=== PATIENT | female | born 1980 | race American Indian/Alaskan Native ===

== ENCOUNTER 2016-08-05 11:16 | Emergency (ER) | payer MEDICAID, OTHER ==
--- NOTE | 2016-08-05 11:31 | OBHP ---
Datetime: 08/05/2016 11:28 IP Adm Impression: , intrauterine IP Chief Complaint Other: pelvic pressure Admit Comment, IP Provider: at 32weeks came from [facility] last night. c/o pelvic pressure and cram ping. no vb, lof,+fm, no dysuria. obhx 1 x c/s, 1 x pmh denies med pnv all nkda psh c/s soch denies ve closed a/p at 32weeks r/o uti, r/o pt lab ua cont maru and efm cont lose observation Pelvic Type - PN: Adequate Extremities - PN: Normal Abdomen - PN: Normal Back - PN: Normal Breast - PN: Normal Lungs - PN: Normal Heart - PN: Normal Thyroid - PN: Normal Neurologic - PN: Normal HEENT - PN: Normal General - PN: Normal FHR - Baseline A Provider: 130 Contraction Comments Provider: none Vital Signs Provider: Reviewed; Within Normal Limits NICHD Variability Prov Fetus A: Moderate 6-25bpm NICHD Accel Fetus A IP Provider: 15X15 FHR Category Provider Fetus A: Category I Dilatation, Provider: 0 Effacement, Provider: 0 Station, Provider: -3 Genitourinary Exam: Normal DTRs - PN: Normal
[2016-08-05 12:04] LABS: RBC URINE 1 /hpf (0-3); URINE BACTERIA RARE (<OCC); URINE BILIRUBIN NEGATIVE (NEGATIVE); URINE BLOOD NEGATIVE (NEGATIVE); URINE COLOR Yellow (YELLOW); URINE GLUCOSE (UA) NORMAL (Normal); URINE KETONE NEGATIVE (NEGATIVE); URINE LEUKOCYTE ESTERASE 1+ Leu/uL (Negative); URINE PROTEIN NEGATIVE (NEGATIVE); URINE UROBILINOGEN NORMAL mg/dL (0.2-1.0); WBC URINE 6 /hpf (0-5)
--- NOTE | 2016-08-05 12:14 | OBHP ---
Datetime: 08/05/2016 11:28 Admit Comment, IP Provider: at 32weeks came from [facility] last night. c/o pelvic pressure and cram ping. no vb, lof,+fm, no dysuria. obhx 1 x c/s, 1 x pmh denies med pnv all nkda psh c/s soch denies ve closed a/p at 32weeks r/o uti, r/o pt lab ua cont maru and efm cont lose observation ua 1+le toco no ctxs plan dc home macrobid po hyration ptl given f/u in [facility] [place] [facility] on friday
--- NOTE | 2016-08-05 12:15 | OBDCSUM ---
Datetime: 08/05/2016 12:13 Discharged to, Provider: Home Follow up at, Provider: friday Follow up in weeks, Provider: [facility] Discharge Comment, Provider: dc home macrobid po hyration ptl given f/u in [facility] on friday Discharge Diagnosis Prov Other: 32week nst uti
== END 2016-08-05 12:20 | disposition home or self-care (01) ==
LOC: C.EROB 11:16
DX: O26.893 Other specified pregnancy related conditions, third trimester (principal); R10.2 Pelvic and perineal pain; Z3A.32 32 weeks gestation of pregnancy

== ENCOUNTER 2016-09-14 09:53 | Emergency (ER) | payer MEDICAID, OTHER ==
--- NOTE | 2016-09-14 11:50 | US ---
PROCEDURE: OB Pelvic Ultrasound HISTORY: OB Sonogram for dating COMPARISON: None available. FINDINGS: LMP: 12/21/2015 UTERUS: Gestational sac: Single intrauterine gestation. Heart rate: 150 bpm. age (Ultrasound estimated): 36 weeks 6 days +/- 2 weeks 4 days. The placenta is seen at the uterine fundus. Date of delivery (Ultrasound estimated) : 10/06/2016 Amniotic fluid index is 10.2 centimeter. CERVIX: Long and closed. No cervical abnormality seen. The cervix measures 2.7 centimeter. RIGHT OVARY: Was not visualized LEFT OVARY: Was not visualized FREE FLUID: None. OTHER FINDINGS: None. IMPRESSION: Single intrauterine live with ultrasound estimated gestational age of 36 weeks 6 days +/- 2 weeks 4 days. Estimated date of delivery by ultrasound is 10/06/2016.
== END 2016-09-14 12:30 | disposition home or self-care (01) ==
LOC: C.EROB 09:53
DX: O26.93 Pregnancy related conditions, unspecified, third trimester (principal); Z3A.38 38 weeks gestation of pregnancy; R10.2 Pelvic and perineal pain

== ENCOUNTER 2016-10-03 11:30 | Inpatient (IN) | payer MEDICAID, OTHER ==
[2016-10-03] MEDS: Lactated Ringer's 1,000 ML IV SCH (12:30)
--- NOTE | 2016-10-03 12:31 | OBHP ---
Datetime: 09/14/2016 12:00 IP Adm Impression: Term, intrauterine ; No Active Labor IP Admit Plan: Observation/Evaluation; Discharge home Admit Comment, IP Provider: 35yo 1 previous C/section and 1 , presents here today with pelv ic discomfort. She denies any VB or LOF. She recently emigrated from [place] and has no PNC in [place] . FHR- Category 1, [place]- none, Cx- 0/0/-3. Assessment: IUP at Term No Active Labor Plan: Official OB sonogram D/c home. Pelvic Type - PN: Adequate Extremities - PN: Normal Abdomen - PN: Normal Back - PN: Normal Breast - PN: Normal Lungs - PN: Normal Heart - PN: Normal Thyroid - PN: Normal Neurologic - PN: Normal HEENT - PN: Normal General - PN: Normal FHR - Baseline A Provider: 130 Membranes, Provider: Intact Contraction Comments Provider: none Comments, ACOG Physical Exam: Abd: Soft,NT, BS- present EGA AdmitDate IP: 38.1 Vital Signs Provider: Reviewed IP Chief Complaint: Maternal discomfort NICHD Variability Prov Fetus A: Moderate 6-25bpm NICHD Accel Fetus A IP Provider: 15X15 FHR Category Provider Fetus A: Category I NICHD Decel Fetus A IP Provider: None Dilatation, Provider: 0 Effacement, Provider: 0 Station, Provider: -3 Genitourinary Exam: Normal DTRs - PN: Normal
--- NOTE | 2016-10-03 12:46 | OBADHP ---
Datetime: 10/03/2016 12:31 IP Chief Complaint Other: No care in the [place] IP Adm Impression Other: Previous Section Admit Comment, IP Provider: 35yo with IUP at 39+ wks with h/o previous Section X1 and a VBA C X1 reports here today c/o uterine contractions. She returned from [place] about 2 months ago and hav e not had care in [place]. She denies any VB or LOF. [place]- irregular, FHR- Category 1, Cx- FT/50/-3, VTX Assessment: IUP at Term with Previous C/S Early Labor Undocumented Section Scar. Plan: Admit for a repeat Section. Pelvic Type - PN: Adequate Extremities - PN: Normal Abdomen - PN: Normal Back - PN: Normal Breast - PN: Normal Lungs - PN: Normal Heart - PN: Normal Thyroid - PN: Normal Neurologic - PN: Normal HEENT - PN: Normal General - PN: Normal Presentation-Admit: Vertex FHR - Baseline A Provider: 150 Membranes, Provider: Intact Contraction Comments Provider: Q 3-5 Gestation - Est Wks by US: 39.0 Vital Signs Provider: Reviewed IP Chief Complaint: Uterine contractions; Maternal discomfort NICHD Variability Prov Fetus A: Moderate 6-25bpm NICHD Accel Fetus A IP Provider: 10X10 FHR Category Provider Fetus A: Category I NICHD Decel Fetus A IP Provider: None Dilatation, Provider: FT Effacement, Provider: 50 Station, Provider: -3 Genitourinary Exam: Normal DTRs - PN: Normal EGA AdmitDate IP: 40.6 IP Adm Impression: Term, intrauterine ; Active labor IP Admit Plan: Admit to unit; Initiate Section protocol Datetime: 09/14/2016 12:00 Comments, ACOG Physical Exam: Abd: Soft,NT, BS- present
[2016-10-03 12:49] VITALS: BMI 31.0
[2016-10-03] MEDS ORDERED: Sodium Citrate/Citric Acid 15 ml Sol PO ONE (12:49)
[2016-10-03 13:05] LABS: BASO % 0.7 % (0.0-2.0); EOS # 0.1 K/uL (0.0-0.7); EOS % 0.7 % (0.0-4.0); HEMATOCRIT 39.4 % (34.0-47.0); LYMPH # 1.7 K/uL (1.0-4.3); LYMPH % 24.6 % (20.0-40.0); MEAN CELL VOLUME 82.8 fL (81.0-99.0); MEAN CORPUSCULAR HEMOGLOBIN 27.2 pg (27.0-31.0); MEAN CORPUSCULAR HGB CONC 32.8 g/dL (33.0-37.0); MEAN PLATELET VOLUME 11.4 fL (7.2-11.7); MONO # 0.8 K/uL (0.0-0.8); RED CELL DISTRIBUTION WIDTH 13.3 % (11.5-14.5)
[2016-10-03 13:10] LABS: RBC URINE 2 /hpf (0-3); URINE BACTERIA RARE (<OCC); URINE BILIRUBIN NEGATIVE (NEGATIVE); URINE BLOOD NEGATIVE (NEGATIVE); URINE COLOR Yellow (YELLOW); URINE GLUCOSE (UA) NORMAL (Normal); URINE KETONE NEGATIVE (NEGATIVE); URINE LEUKOCYTE ESTERASE NEG Leu/uL (Negative); URINE PROTEIN NEGATIVE (NEGATIVE); URINE UROBILINOGEN NORMAL mg/dL (0.2-1.0); WBC URINE 4 /hpf (0-5)
[2016-10-03 13:19] LABS: CHLORIDE 102 mmol/L (98-107)
[2016-10-03 13:20] LABS: POTASSIUM 3.7 mmol/L (3.6-5.2); SODIUM 134 mmol/L (132-148)
[2016-10-03 13:22] LABS: ALB/GLOB RATIO 0.9 (1.0-2.1); ALKALINE PHOSPHATASE 246 U/L (38-126); AST/SGOT 30 U/L (14-36); BILIRUBIN,TOTAL 0.5 mg/dL (0.2-1.3); BLOOD UREA NITROGEN 9 mg/dL (7-17); CARBON DIOXIDE 22 mmol/L (22-30); GFR AFRICAN-AMERICAN > 60; TOTAL PROTEIN 6.4 g/dL (6.3-8.3)
[2016-10-03 13:23] LABS: ALT/SGPT 28 U/L (9-52); CALCIUM 9.3 mg/dl (8.6-10.4); GLUCOSE,RANDOM 103 mg/dL (65-105)
[2016-10-03] MEDS ORDERED: Oxytocin 20 units in LR 2,000 ML IV ONE (13:49)
[2016-10-03] MEDS ORDERED: Sodium Citrate/Citric Acid 15 ml Sol ONE (13:49)
[2016-10-03] MEDS ORDERED: cefOXitin IV 2 gm in Dextrose 2 GM/50 ML BAG IVPB ONE (14:00)
[2016-10-03] MEDS ORDERED: Morphine 1 mg/ml preservative-free Inj(Duramorph) ONE (14:58)
--- NOTE | 2016-10-03 17:12 | OBDS ---
DELIVERY PERSONNEL Delivery Doctor: Krunal Dias MD Scrub Nurse: Milli Arenas OBT Roving Marker: Hoa Castro RN Anesthesiologist: mariely MATERNAL INFORMATION Delivery Anesthesia: Spinal Maternal Complications: None RN Comments: live born baby boy, 9/9 Provider Comments: Uncomplicated Repeat delivery of a viable male infant with scores of 9 and 9. Baby delivered in cephalic presentation. LABOR SUMMARY EDC: 09/27/2016 00:00 No. Babies in Womb: 1 Attempted: No Labor Anesthesia: None LABOR INFORMATION Oxytocin: N/A Steroids Given: None Reason Steroids Not Administered: Not Applicable STAGES OF LABOR Stage 3 hrs: 0 Stage 3 min: 2 VAGINAL DELIVERY Episiotomy: None Laceration Extension: N/A Laceration Type: None CSECTION DELIVERY Primary Indication: Repeat Elective Secondary Indication: N/A CSection Urgency: Elective CSection Incidence: Repeat Labor: N/A Elective: Elective CSection Incision: Lower Uterine Transverse Uterine Closure: Double-layer closure BABY A INFORMATION Delivery Date/Time: 10/03/2016 16:01 Method of Delivery: Born in Route : No : N/A Forceps: N/A Vacuum Extraction: N/A Shoulder Dystocia : No SHOULDER DYSTOCIA BABY A Infant Delivery Date/Time: 10/03/2016 16:01 PRESENTATION/POSITION BABY A Presentation: Cephalic Cephalic Presentation: Vertex Vertex Position: Right Occipital Anterior Breech Presentation: N/A PLACENTA INFORMATION BABY A Placenta Delivery Time : 10/03/2016 16:03 Placenta Method of Delivery: Manual Removal Placenta Status: Delivered SCORES BABY A Heart Rate 1 min: >100 bpm Resp Effort 1 min: Good Cry Reflex Irritability 1 min: Cough or Sneeze or Pulls Away Muscle Tone 1 min: Active Motion Color 1 min: Body [place], Extremities Blue SCORE 1 MIN: 9 Heart Rate 5 min: >100 bpm Resp Effort 5 min: Good Cry Reflex Irritability 5 min: Cough or Sneeze or Pulls Away Muscle Tone 5 min: Active Motion Color 5 min: Body [place], Extremities Blue SCORE 5 MIN: 9 Resuscitation Effort 10 min: N/A INFORMATION BABY A Gestational Age at Delivery: 40.0 Gestational Status: Term Outcome : Liveborn Condition : Stable Sex: Male IDENTIFICATION/MEDS BABY A ID Band Number: [id number] ID Band Location: Right Arm; Left Leg; Left Arm Sensor Applied: Yes Sensor Number: [id number] Sensor Location : Cord Clamp Vitamin K Given : Not Given Erythromycin Given: Not Given WEIGHT/LENGTH BABY A Infant Birthweight (gms): 3300 Weight (lb): 7 Weight (oz): 4 Infant Length Inches: 20.00 Length cms: 50.8 CORD INFORMATION BABY A No. Cord Vessels: 3 Nuchal Cord : N/A Cord Blood Taken: Yes Infant Suction: Mouth; Nose ASSESSMENT BABY A Complications: None Physical Findings at Delivery: Within Normal Limits Infant Respirations: Appears Normal Poke In/ALS Called : No Infant Care By: violetta meléndez rn Transferred To: [facility]
--- NOTE | 2016-10-03 17:29 | PCM.SURG1 ---
Surgeon's Initial Post Op Note - Surgeon's Notes Surgeon: Dr Dias Senior Treasury Analyst: Dr Malloy Type of Anesthesia: Spinal Anesthesia Administered By: Dr Emmanuel Pre-Operative Diagnosis: IUP at 39wks previous Section in Early Labor Operative Findings: Live male baby with BW of 7ibs 4 oz and scores of 9 and 9, Fundal placenta, Clear amniotic fluid cephalic prentation. Normal looking uterus but extensive fibrous adhesions of bladder peritoneum to the anterior surfacce of the uterus which had to be dissected before lower transverse incision. The fallopian tunes and ovaries appeared normal on both sides. IVF- 1400ml. EBL- 600mls. Urine output- 400mls of clear urine. Post-Operative Diagnosis: Same as preop diagnosis. Bladder adhesions to the anterior surface of the uterus Operation Performed: Release of Adhesions. Repeat low transverse Section. Specimen/Specimens Removed: Umbilical cord blood obtained. Estimated Blood Loss: EBL {In ML}: 600 Blood Products Given: N/A Post-Op Condition: Good Date of Surgery/Procedure: 10/03/16 Time of Surgery/Procedure: 17:31
--- NOTE | 2016-10-03 19:16 | OP ---
PROCEDURE DATE: 10/03/2016 PREOPERATIVE DIAGNOSES: Intrauterine at 39+ weeks with history of section in early labor. POSTOPERATIVE DIAGNOSES: Intrauterine at 39+ weeks with history of section in early labor. PROCEDURE DONE: Repeat low transverse section performed on 10/03/2016. SURGEON: Dr. Dias. COUNTY PROGRAM TECHNICIAN: Dr. Malloy. Assistance to this procedure was needed for exposure of tissues and help in the delivery of the baby. Supervisor Case Loading remained with the surgery throughout its entire length. TYPE OF ANESTHESIA: Spinal anesthesia administered by Dr. Wagner Emmanuel. OPERATIVE FINDINGS: A live male baby with weight of 7 pounds 4 ounces, scores of 9 in the first and fifth minutes respectively, delivered in cephalic presentation in the right occipital anterior position. Amniotic fluid was clear. Placenta was fundal. The uterus was normal looking, but there were extensive fibrinous adhesions of the bladder peritoneum to the anterior surface of the uterus, which had to be dissected before the lower uterine transverse incision. The fallopian tubes as well as the ovaries on both sides appeared normal. INTRAVENOUS FLUID INTAKE: INTAKE: 1400 mL. ESTIMATED BLOOD LOSS: 600 mL. URINE OUTPUT: 400 mL of clear urine at the end of the procedure. COMPLICATIONS: There were no complications. DESCRIPTION OF PROCEDURE: After obtaining informed consent, the patient was sent to the OR with IV running and Blankenship catheter in place. The patient was sat on the OR table and after adequate spinal anesthesia, was put in a supine position with a left lateral tilt. The patient was prepped and draped in the usual sterile fashion. A subumbilical midline incision was performed after excision of the previous scar. The incision was carried through the subcutaneous tissues until the rectus fascia was identified. A longitudinal incision was made in the rectus fascia and the edges were held with Allis forceps. The underlying rectus muscles were then from the fascia and the peritoneum was carefully entered using Metzenbaum scissors. The incision was then extended in a cephalad and caudad fashion until access to the abdomen was acquired. Once the abdominal cavity was entered, the above findings were noted. The fibrinous adhesions on the anterior surface of the uterus were released using free 2-0 vicryl ties to seperate the adhesions. After separation of the adhesions, the vesicouterine fold of peritoneum was identified , incised in a transverse fashion and retracted inferiorly to expose the lower uterine segment. A low transverse incision was made using a scalpel. This was sent through the myometrial layers until the amniotic membranes were identified. The incision was extended to both sides in a blunt fashion. The baby, who was in cephalic presentation, was delivered after rupturing the amniotic membranes with the pickup forceps. The mouth and nostrils of the baby were bulb suctioned and the 3 vessel cord was clamped and cut. Baby was given to the nurse. The placenta was manually removed after obtaining samples of umbilical cord bloods The uterine cavity was cleaned of all debris using dry laparotomy pads. The uterine incision at this point was closed in 2 layers using Vicryl #0; the first layer in a running locked fashion and the second layer in a running fashion and imbricating the first layer. This was performed until hemostasis was achieved. Irrigation of the pelvis with warm saline was undertaken at this point and after removing the instruments and laparotomy pads from the abdomen, the uterus was returned into the abdominal cavity. There were some adhesions on the anterior surface of the uterus where the adhesions were . Surgicel was placed on that side to control the bleeding. Once hemostasis was noted, attention was turned to the anterior abdominal wall, which was closed in layers with 0 Vicryl for the fascia and the peritoneum. The subcutaneous tissue was brought together by means of #2-0 plain. The skin was closed using jaxson. All counts of instruments, laparotomy pads, and needles used were correct x 3 and the patient was sent to the recovery room awake and in stable condition. Pierre Dias MD cc: [id number] TT: 10/03/2016 19:15:15 jn MTDD
[2016-10-03] MEDS: Oxycodone/Acetaminophen 5/325 mg Tab PO PRN (22:47)
[2016-10-03] MEDS: cefOXitin IV 2 gm in Dextrose 2 GM/50 ML BAG IVPB SCH (22:49)
[2016-10-03] MEDS ORDERED: cefOXitin IV 2 gm in Saline 2 GM in Sodium Chloride 0.9% 50 ML IV SCH (23:30)
[2016-10-04] MEDS: Lactated Ringer's 1,000 ML IV SCH (01:53)
[2016-10-04] MEDS ORDERED: cefOXitin IV 2 gm in Dextrose 2 GM/50 ML BAG IVPB ONE (06:45)
[2016-10-04] MEDS: Oxycodone/Acetaminophen 5/325 mg Tab PO PRN ×4 (06:47→20:28)
[2016-10-04] MEDS: cefOXitin IV 2 gm in Dextrose 2 GM/50 ML BAG IVPB SCH ×2 (06:49→16:06)
--- NOTE | 2016-10-04 07:43 | OBPPN ---
Datetime: 10/04/2016 07:40 PP Pain Prov: Within normal limits PP Nausea Prov: Denies PP Flatus Prov: Yes PP BM Prov: No PP Heart Prov: Normal PP Lungs Prov: Normal PP Abdomen/Uterus Prov: Normal PP Lochia Prov: Normal PP Vulva/Perineum Prov: Normal PP CVA Tenderness Prov: Normal PP Extremities Prov: Normal PP C/S Incision Prov: Normal PP Progress Prov: Normal PP Impression Prov: Normal progression PP Plan Prov: Continue present management PP Progress Note Prov: S-patient reports that her pain is well controlled. she denies nausea, vomiti ng, headache, chest pain, shortness of breath,numbness or tingling in hands and feet O-VSS AFebrile Fundus firm and below umbilcius Incision clean, dry and intact extremities no calf tenderness A/P Patient s/p csection pod 1 doing well.Patient with no care -advance diet -po fluids -encourage IS use -continue routine post op care -follow up am cbc -social service consult Vital Signs Provider PP: Reviewed; Within Normal Limits
[2016-10-04 08:09] LABS: BASO % 0.5 % (0.0-2.0); EOS # 0.1 K/uL (0.0-0.7); EOS % 0.6 % (0.0-4.0); LYMPH # 1.2 K/uL (1.0-4.3); LYMPH % 12.3 % (20.0-40.0); MEAN CORPUSCULAR HEMOGLOBIN 27.5 pg (27.0-31.0); MEAN CORPUSCULAR HGB CONC 33.1 g/dL (33.0-37.0); MEAN PLATELET VOLUME 11.9 fL (7.2-11.7); MONO # 0.9 K/uL (0.0-0.8); MONO % 9.1 % (0.0-10.0); RED CELL DISTRIBUTION WIDTH 13.3 % (11.5-14.5); WHITE BLOOD COUNT 9.5 K/uL (4.8-10.8)
[2016-10-04] MEDS ORDERED: Bisacodyl 5mg EC Tab PO ONE ×2 (17:20→19:30)
--- NOTE | 2016-10-05 07:51 | OBPPN ---
Datetime: 10/05/2016 07:49 PP Pain Prov: Within normal limits PP Nausea Prov: Denies PP Flatus Prov: Yes PP Breasts Prov: Normal PP Heart Prov: Normal PP Lungs Prov: Normal PP Abdomen/Uterus Prov: Normal PP Lochia Prov: Normal PP Vulva/Perineum Prov: Normal PP CVA Tenderness Prov: Normal PP Extremities Prov: Normal PP C/S Incision Prov: Normal PP Progress Prov: Normal PP Comments Phys Exam Prov: Abd: Soft, NT, BS- present UT- Firm Incision: Clean and dry PP Impression Prov: Normal progression PP Plan Prov: Continue present management PP Progress Note Prov: S/P Repeat Section, POD #2 Clinically Stable. Plan: Continue Care. Vital Signs Provider PP: Reviewed
[2016-10-05 09:18] VITALS: RESP 18
[2016-10-05] MEDS: Oxycodone/Acetaminophen 5/325 mg Tab PO PRN (20:24)
[2016-10-06] MEDS: Oxycodone/Acetaminophen 5/325 mg Tab PO PRN ×3 (01:09→11:25)
--- NOTE | 2016-10-06 07:33 | OBPPN ---
Datetime: 10/06/2016 07:30 PP Pain Prov: Within normal limits PP Nausea Prov: Denies PP Flatus Prov: Yes PP Abdomen/Uterus Prov: Normal PP Lochia Prov: Normal PP Extremities Prov: Normal PP C/S Incision Prov: Normal PP Comments Phys Exam Prov: fudus below umblicus ext no edema,no calf ten incision clean and dry PP Impression Prov: Normal progression PP Plan Prov: Discharge PP Progress Note Prov: pt was seen at bed side, pain under control,no n/v, tolerating deit, voiding, mibn lochia,+flatus.no fever pod#3 s/p c/s dc home no sex percocert prn f/u in clinic in 1week Vital Signs Provider PP: Reviewed; Within Normal Limits
--- NOTE | 2016-10-06 07:33 | OBDCSUM ---
Datetime: 09/14/2016 12:30 Follow up at, Provider: friday Discharge Diagnosis, Provider: Term Delivered Follow up in weeks, Provider: clinic Disch Activity Restrictions: No exercising; No lifting; No driving; Minimize stair-climbing; No sexu al activity; Nothing in vagina - Halma, tampons, douche Discharge Comment, Provider: no sex percocet prn f/u omn friday for jaxson Discharge Diagnosis Prov Other: c/s c/s
[2016-10-06 08:11] VITALS: BP 109/69; PULSE 86; TEMP 97.7; O2SAT 99
== END 2016-10-06 11:30 | disposition home or self-care (01) | DRG 370 ==
LOC: C.EROB 11:30 → C.4D 12:31 → C.4M 19:33
PROVIDERS: ADMIT Obstetrics & Gynecology; ATTEND Obstetrics & Gynecology
PROC: 10D00Z1 Extraction of Products of Conception, Low, Open Approach (ICD-10-PCS; principal; 2016-10-03)
PROC: 0UN90ZZ Release Uterus, Open Approach (ICD-10-PCS; 2016-10-03)
DX: O34.219 Maternal care for unspecified type scar from previous cesarean delivery (principal); O09.33 Supervision of pregnancy with insufficient antenatal care, third trimester; N73.6 Female pelvic peritoneal adhesions (postinfective); Z3A.39 39 weeks gestation of pregnancy; O09.523 Supervision of elderly multigravida, third trimester; Z37.0 Single live birth